=== PATIENT | female | born 1950 ===

== ENCOUNTER 2017-03-01 08:07 | Emergency (ER) | payer MEDICARE ==
[2017-03-01 08:07] VITALS: BMI 25.0
[2017-03-01 08:20] VITALS: RESP 18; O2SAT 100
--- NOTE | 2017-03-01 09:26 | CT ---
PROCEDURE: CT HEAD WITHOUT CONTRAST. HISTORY: trauma COMPARISON: None available. TECHNIQUE: Axial computed tomography images were obtained through the head/brain without intravenous contrast. Radiation dose: Total exam DLP = 894.5 mGy-cm. This CT exam was performed using one or more of the following dose reduction techniques: Automated exposure control, adjustment of the mA and/or kV according to patient size, and/or use of iterative reconstruction technique. FINDINGS: HEMORRHAGE: No intracranial hemorrhage. BRAIN: No mass effect or edema. No atrophy or chronic microvascular ischemic changes. VENTRICLES: Unremarkable. No hydrocephalus. CALVARIUM: Unremarkable. PARANASAL SINUSES: Unremarkable as visualized. No significant inflammatory changes. MASTOID AIR CELLS: Unremarkable as visualized. No inflammatory changes. OTHER FINDINGS: None. IMPRESSION: Normal CT of the Head.
--- NOTE | 2017-03-01 09:26 | CT ---
PROCEDURE: CT MAXILLOFACIAL BONES WITHOUT CONTRAST HISTORY: trauma COMPARISON: None TECHNIQUE: Contiguous axial CT images of the maxillofacial bones were obtained. Coronal and sagittal reformats were generated. Radiation dose: Total exam DLP = 813.1 mGy-cm. This CT exam was performed using one or more of the following dose reduction techniques: Automated exposure control, adjustment of the mA and/or kV according to patient size, and/or use of iterative reconstruction technique. FINDINGS: NASAL BONES: Unremarkable. ORBITS: Unremarkable. PARANASAL SINUSES/ MASTOIDS: Clear. MAXILLA: Unremarkable. MANDIBLE/ TEMPOROMANDIBULAR JOINTS: Unremarkable. SKULL BASE: Unremarkable. TEMPORAL BONES: Middle ears and mastoid grossly unremarkable. OTHER FINDINGS: None. IMPRESSION: Unremarkable non contrast enhanced CT of the maxillofacial bones.
--- NOTE | 2017-03-01 09:46 | RAD ---
PROCEDURE: Radiographs of the Right Forearm HISTORY: traum COMPARISON: None available. TECHNIQUE: Frontal and lateral views obtained. FINDINGS: BONES: Although no fracture line is appreciated. Given the anterior elbow joint effusion. An occult radial fracture or mild impaction same needs to be considered. Tiny anterior coronoid spurring present. JOINT SPACES: Unremarkable. OTHER FINDINGS: None. IMPRESSION: Although a definitive fracture is not identified on these images. An anterior elbow joint effusion is present; an occult radial fracture needs to be considered. No dislocation noted sign
--- NOTE | 2017-03-01 09:47 | RAD ---
PROCEDURE: Radiographs of the right elbow. HISTORY: trauma COMPARISON: No prior. FINDINGS: BONES: Although no discrete fracture is appreciated, the anterior elbow joint effusion is concerning for an occult radial fracture JOINTS: Trace osteoarthritis -spurring of coronoid process. SOFT TISSUES: Joint effusion JOINT EFFUSION: None. OTHER FINDINGS: None. IMPRESSION: Although no discrete fracture is appreciated, the anterior elbow joint effusion is concerning for an occult radial fracture
--- NOTE | 2017-03-01 09:51 | C.PDOC ---
History Of Present Illness 66 y/o female presents to ED for evaluation of facial pain, left elbow and right knee pain s/p mechanical trip and fall yesterday. Pt thought the pain would go away but pain persisted which prompted her to visit ED today. Notes taking Ibuprofen last night. Denies LOC, headache, nausea, vomiting, or other complaints at this time. No change in sensation. No visual changes. Able to ambulate. - HPI Time Seen by Provider: 03/01/17 08:10 Chief Complaint (Nursing): Trauma History Per: Patient History/Exam Limitations: no limitations Onset/Duration Of Symptoms: Days Location Of Injury: Anterior: Face Recent travel outside of the [place]: No Additional History Per: Patient Past Medical History Reviewed: Historical Data, Nursing Documentation, Vital Signs Vital Signs: Last Vital Signs Temp 98.2 F 03/01/17 10:45 Pulse 62 03/01/17 10:45 Resp 18 03/01/17 10:45 BP 162/89 H 03/01/17 10:45 Pulse Ox 100 03/01/17 10:45 - Medical History PMH: Denies: Chronic Kidney Disease - [facility] Procedures CONTR CEREBR ARTERIOGRAM (01/21/14) Family History: States: Unknown Family Hx - Social History Hx Alcohol Use: No Hx Substance Use: No - Immunization History Hx Tetanus Toxoid Vaccination: No Hx Influenza Vaccination: No Hx Pneumococcal Vaccination: No Review Of Systems Except As Marked, All Systems Reviewed And Found Negative. Constitutional: Negative for: Fever, Chills ENT: Positive for: Other (facial pain) Cardiovascular: Negative for: Chest Pain Respiratory: Negative for: Shortness of Breath Musculoskeletal: Positive for: Leg Pain (right knee) Neurological: Negative for: Weakness, Numbness Physical Exam - Physical Exam Appears: Non-toxic, No Acute Distress Skin: Warm, Dry, Other (superficial abrasion to right knee) Head: Atraumatic, Normacephalic Eye(s): bilateral: Normal Inspection, PERRL, EOMI Ear(s): Bilateral: Normal Nose: Normal Oral Mucosa: Moist Tongue: Normal Appearing Lips: Abrasion (superficial abrasion to right upper lip), Laceration (healing superficial laceration to right inner mucosa of upper lip) Teeth: Tender To Palpation (right maxillary central incisiors), No Loose (teeth are intact) Gingiva: Normal Appearing Throat: Normal, No Erythema, No Exudate Neck: Normal ROM, No Midline Cervical Tenderness, No Step Off Deformity, Supple Chest: Symmetrical Cardiovascular: Rhythm Regular, No Murmur Respiratory: Normal Breath Sounds, No Rales, No Rhonchi, No Wheezing Gastrointestinal/Abdominal: Soft, No Tenderness Extremity: Normal ROM (FROM of right elbow and right knee joint), Tenderness ( medial aspect of right elbow), No Pedal Edema, Capillary Refill (< 2 secs.), No Deformity, No Swelling Pulses: Left Radial: Normal, Right Radial: Normal Neurological/Psych: Oriented x3, Normal Speech, Normal Motor, Normal Sensation Gait: Steady ED Course And Treatment O2 Sat by Pulse Oximetry: 100 (RA) Pulse Ox Interpretation: Normal - Other Rad Right elbow x-ray X-Ray: Viewed By Me, Read By Radiologist Interpretation: PROCEDURE: Radiographs of the right elbow. HISTORY: trauma. COMPARISON: No prior. FINDINGS: BONES: Although no discrete fracture is appreciated, the anterior elbow joint effusion is concerning for an occult radial fracture. JOINTS: Trace osteoarthritis -spurring of coronoid process. SOFT TISSUES: Joint effusion. JOINT EFFUSION: None. OTHER FINDINGS: None. IMPRESSION: Although no discrete fracture is appreciated, the anterior elbow joint effusion is concerning for an occult radial fracture Right forearm x-ray X-Ray: Viewed By Me, Read By Radiologist Interpretation: PROCEDURE: Radiographs of the Right Forearm. HISTORY: traum. COMPARISON: None available. TECHNIQUE: Frontal and lateral views obtained. FINDINGS: BONES: Although no fracture line is appreciated. Given the anterior elbow joint effusion. An occult radial fracture or mild impaction same needs to be considered. Tiny anterior coronoid spurring present. JOINT SPACES: Unremarkable. OTHER FINDINGS: None. IMPRESSION: Although a definitive fracture is not identified on these images. An anterior elbow joint effusion is present; an occult radial fracture needs to be considered. No dislocation noted sign - CT Scan/US Head CT Other Rad Studies (CT/US): Read By Radiologist, Radiology Report Reviewed CT/US Interpretation: Accession No. : [id number]. Patient Name / ID : ACE CHILD / [id number]. Exam Date : 03/01/2017 08:56:40 ( Approved ). Study Comment : Sex / Age : F / 66Y. Creator : Raz Rod MD. Dictator : Raz Rod MD. Payable Manager : Sales Representative [employer] : Raz Rod MD. Approver2 : Report Date : 03/01/2017 09:24:46. My Comment : . PROCEDURE: CT HEAD WITHOUT CONTRAST. HISTORY: trauma. COMPARISON: None available. TECHNIQUE: Axial computed tomography images were obtained through the head/brain without intravenous contrast. Radiation dose: Total exam DLP = 894.5 mGy-cm. This CT exam was performed using one or more of the following dose reduction techniques: Automated exposure control, adjustment of the mA and/ or kV according to patient size, and/or use of iterative reconstruction technique. FINDINGS: HEMORRHAGE: No intracranial hemorrhage. BRAIN: No mass effect or edema. No atrophy or chronic microvascular ischemic changes. VENTRICLES: Unremarkable. No hydrocephalus. CALVARIUM: Unremarkable. PARANASAL SINUSES: Unremarkable as visualized. No significant inflammatory changes. MASTOID AIR CELLS: Unremarkable as visualized. No inflammatory changes. OTHER FINDINGS: None. IMPRESSION: Normal CT of the Head. Maxillofacial CT Other Rad Studies (CT/US): Read By Radiologist, Radiology Report Reviewed CT/US Interpretation: PROCEDURE: CT MAXILLOFACIAL BONES WITHOUT CONTRAST. HISTORY: trauma. COMPARISON: None. TECHNIQUE: Contiguous axial CT images of the maxillofacial bones were obtained. Coronal and sagittal reformats were generated. Radiation dose: Total exam DLP = 813.1 mGy-cm. This CT exam was performed using one or more of the following dose reduction techniques: Automated exposure control, adjustment of the mA and/or kV according to patient size, and/or use of iterative reconstruction technique. FINDINGS: NASAL BONES : Unremarkable. ORBITS: Unremarkable. PARANASAL SINUSES/ MASTOIDS: Clear. MAXILLA: Unremarkable. MANDIBLE/ TEMPOROMANDIBULAR JOINTS: Unremarkable. SKULL BASE: Unremarkable. TEMPORAL BONES: Middle ears and mastoid grossly unremarkable. OTHER FINDINGS: None. IMPRESSION: Unremarkable non contrast enhanced CT of the maxillofacial bones. Progress Note: Head CT, maxillofacial CT, right elbow, and right forearm x-ray ordered and reviewed. Patient was given Tramadol. On reassessment, patient is resting comfortably, and is in no acute distress. Patient was instructed to follow up with physician/clinic in 1-2 days for further evaluation. Posterior elbow splint applied by pharmacy technician per diem. Pt was instructed to follow up with ortho and discussed possibility of occult fx. Disposition - Disposition Referrals: Rojas Sahu III, MD [Staff Provider] - Disposition: HOME/ ROUTINE Disposition Time: 09:44 Condition: STABLE Additional Instructions: Follow up with your primary doctor and bone doctor in 1-2 days. Return to ER if symptoms persist or worsen. Prescriptions: Naproxen [Naprosyn] 1 tab PO BID PRN #20 tab PRN Reason: Pain Instructions: Contusion in Adults (ED) Forms: [employer] (Bangladeshi) Print Language: BELGIAN - Clinical Impression Clinical Impression: Facial contusion, Knee abrasion, Elbow fracture - PA / RAILROAD MECHANIC / Resident Statement MD/DO has reviewed & agrees with the documentation as recorded. - Scribe Statement The provider has reviewed the documentation as recorded by the Scribe Anderson Mcdonald All medical record entries made by the Humphreyibchristopher were at my direction and personally dictated by me. I have reviewed the chart and agree that the record accurately reflects my personal performance of the history, physical exam, medical decision making, and the department course for this patient. I have also personally directed, reviewed, and agree with the discharge instructions and disposition.
--- NOTE | 2017-03-01 10:09 | C.PDOC ---
- HPI Time Seen by Provider: 03/01/17 08:10 Chief Complaint (Nursing): Trauma Past Medical History Vital Signs: Last Vital Signs Temp 98 F 03/01/17 08:12 Pulse 77 03/01/17 08:12 Resp 18 03/01/17 08:12 BP 189/96 H 03/01/17 08:12 Pulse Ox 100 03/01/17 08:12 - Medical History PMH: Denies: Chronic Kidney Disease - [facility] Procedures CONTR CEREBR ARTERIOGRAM (01/21/14) - Social History Hx Alcohol Use: No Hx Substance Use: No - Immunization History Hx Tetanus Toxoid Vaccination: No Hx Influenza Vaccination: No Hx Pneumococcal Vaccination: No ED Course And Treatment O2 Sat by Pulse Oximetry: 100 Disposition - Disposition Referrals: Rojas Sahu III, MD [Staff Provider] - Disposition: HOME/ ROUTINE Disposition Time: 09:44 Condition: STABLE Additional Instructions: Follow up with your primary doctor and bone doctor in 1-2 days. Return to ER if symptoms persist or worsen. Prescriptions: Naproxen [Naprosyn] 1 tab PO BID PRN #20 tab PRN Reason: Pain Instructions: Contusion in Adults (ED) Print Language: TAJIK
[2017-03-01 10:46] VITALS: BP 162/89; PULSE 62; TEMP 98.2
== END 2017-03-01 10:55 | disposition home or self-care (01) ==
LOC: C.ER 08:07
DX: S42.401A Unspecified fracture of lower end of right humerus, initial encounter for closed fracture (principal); S00.83XA Contusion of other part of head, initial encounter; S80.211A Abrasion, right knee, initial encounter; W01.0XXA Fall on same level from slipping, tripping and stumbling without subsequent striking against object, initial encounter